=== PATIENT | female | born 1940 | race American Indian/Alaskan Native ===

== ENCOUNTER 2025-07-19 00:19 | Emergency (ER) | payer MEDICARE, OTHER ==
[2025-07-19] MEDS ORDERED: Sodium Chloride 0.9% 10 ML Syringe FLUSH PRN (00:53)
[2025-07-19 01:14] LABS: BASOPHILS PERCENT AUTO 0.4 % (0.0-1.0); EOSINOPHILS PERCENT AUTO 2.8 % (1.0-3.0); LYMPHOCYTES PERCENT AUTO 30.1 % (20.5-50.1); MONOCYTES PERCENT AUTO 9.7 % (2-8); NEUTROPHILS PERCENT AUTO 57.0 % (42.2-75.2); PLATELET COUNT,PLT 167 10^3/uL (150-450); RED BLOOD CELL COUNT 5.14 10^6/uL (4.2-5.4); WHITE BLOOD CELL COUNT,WBC 7.9 10^3/uL (5.0-10.0)
[2025-07-19 01:19] LABS: A/G RATIO 0.8; ALANINE AMINOTRANSFERASE,ALT 19.0 U/L (14-59); ASPARTATE AMNIOTRANSFERASE,AST 20.0 U/L (15-37); BILIRUBIN TOTAL 0.6 mg/dL (0.2-1.0); BLOOD UREA NITROGEN,BUN 5.0 mg/dL (7-18); CARBON DIOXIDE,CO2 30.0 mmol/L (21-32); CHLORIDE,CL 105.0 mmol/L (98-107); CREATININE 0.68 mg/dL (0.55-1.02); EST CRCL DRUG DOSING (CG) 58.68 mL/min; GLUCOSE RANDOM 120.0 mg/dL (70-99); POTASSIUM,K 4.2 mmol/L (3.5-5.1); PROTEIN TOTAL,TP 7.8 g/dL (6.4-8.2); SODIUM,NA 142.0 mmol/L (136-145)
[2025-07-19 01:25] LABS: LACTIC ACID 1.5 mmol/L (0.4-2.0)
[2025-07-19 01:26] LABS: ESTIMATED GFR 86.0 mL/min (>=60)
[2025-07-19 01:37] LABS: B-TYPE NATRIURETIC PEPTIDE,BNP 589.0 pg/ml (0-100)
[2025-07-19] MEDS: Furosemide 40 MG/4 ML VIAL IVPUSH ONE (01:59)
[2025-07-19] MEDS: Take Home: Azithromycin 250 MG, 2 Tab Pack PO ONE (02:07)
[2025-07-19] MEDS: Take Home: predniSONE 20 MG, 4 Tab Pack PO ONE (02:08)
[2025-07-19] MEDS: Iopamidol 612 MG/ML 100 ML Bottle IVPUSH ONE (03:06)
== END 2025-07-19 04:18 | disposition home or self-care (01) ==
LOC: DL.ED 00:19
DX: J44.1 Chronic obstructive pulmonary disease with (acute) exacerbation (principal); I16.0 Hypertensive urgency; I71.23 Aneurysm of the descending thoracic aorta, without rupture; I71.40 Abdominal aortic aneurysm, without rupture, unspecified; E87.70 Fluid overload, unspecified; I70.8 Atherosclerosis of other arteries; F17.210 Nicotine dependence, cigarettes, uncomplicated; Z79.899 Other long term (current) drug therapy
CPT/HCPCS: 36415; 71045; 71275; 80053; 83605; 83880; 85025; 85379; 87428; 93005; 96374; 99285; A9270; J1938; J7512; Q9967

== ENCOUNTER 2025-07-25 03:26 | Emergency (ER) | payer MEDICARE, OTHER ==
[2025-07-25 03:26] LABS: PLATELET COUNT,PLT 202 10^3/uL (150-450); RED BLOOD CELL COUNT 5.08 10^6/uL (4.2-5.4); WHITE BLOOD CELL COUNT,WBC 10.6 10^3/uL (5.0-10.0)
[2025-07-25 03:29] LABS: BASOPHILS PERCENT AUTO 0.2 % (0.0-1.0); EOSINOPHILS PERCENT AUTO 2.5 % (1.0-3.0); LYMPHOCYTES PERCENT AUTO 24.6 % (20.5-50.1); MONOCYTES PERCENT AUTO 8.4 % (2-8); NEUTROPHILS PERCENT AUTO 64.3 % (42.2-75.2)
[2025-07-25] MEDS: Dexamethasone 4 MG/ML SDV IVPUSH ONE (03:42)
[2025-07-25] MEDS: Dexamethasone 4 MG/ML SDV ONE (03:43)
[2025-07-25 03:44] LABS: B-TYPE NATRIURETIC PEPTIDE,BNP 207 pg/ml (0-100)
[2025-07-25 03:45] LABS: ALANINE AMINOTRANSFERASE,ALT 35 U/L (14-59); ASPARTATE AMNIOTRANSFERASE,AST 32 U/L (15-37); BILIRUBIN TOTAL 0.4 mg/dL (0.2-1.0); BLOOD UREA NITROGEN,BUN 18 mg/dL (7-18); CARBON DIOXIDE,CO2 32 mmol/L (21-32); CHLORIDE,CL 101 mmol/L (98-107); CREATININE 0.85 mg/dL (0.55-1.02); GLUCOSE RANDOM 193 mg/dL (70-99); POTASSIUM,K 4.4 mmol/L (3.5-5.1); PROTEIN TOTAL,TP 6.5 g/dL (6.4-8.2); SODIUM,NA 139 mmol/L (136-145)
[2025-07-25 03:46] LABS: A/G RATIO 0.81; ESTIMATED GFR 68 mL/min (>=60)
[2025-07-25 03:47] LABS: LACTIC ACID 1.7 mmol/L (0.4-2.0)
[2025-07-25 03:52] LABS: EOSINOPHILS PERCENT MAN 3 % (1-3); LYMPHOCYTES PERCENT MAN 21 % (20-50); MONOCYTES PERCENT MAN 7 % (2-8); SEG NEUTROPHILS PERCENT MAN 69 % (42-75)
[2025-07-25] MEDS: Magnesium Sulfate 2 GM/50 mL 2 GM in Premix Bag 1 BAG IV ONE (05:27)
[2025-07-25] MEDS: Albuterol 0.083% 2.5 MG/3 ML Neb Soln NEB ONE ×2 (05:27→06:47)
== END 2025-07-25 07:48 | disposition home or self-care (01) ==
LOC: DL.ED 03:26
DX: J44.1 Chronic obstructive pulmonary disease with (acute) exacerbation (principal); I10 Essential (primary) hypertension; Z79.899 Other long term (current) drug therapy
CPT/HCPCS: 36415; 71045; 80053; 83605; 83880; 84145; 84484; 85025; 93005; 96365; 99284; A9270; J1100; J3475; 93010